=== PATIENT | male | born 1970 ===

== ENCOUNTER 2017-07-28 10:35 | Emergency (ER) | payer SELFPAY ==
[2017-07-28 11:13] VITALS: RESP 18
--- NOTE | 2017-07-28 13:43 | ED PDOC ---
HPI: Abdomen Time Seen by Provider: 07/28/17 13:17 Chief Complaint (Nursing): Abdominal Pain Chief Complaint (Provider): "my stomach hurts" History Per: Patient Onset/Duration Of Symptoms: Days Outside of [place] travel?: No Current Symptoms Are (Timing): Intermittent Episodes Severity: Mild Pain Scale Rating Of: 3 Location Of Pain/Discomfort: LUQ Quality Of Discomfort: Aching, Burning Associated Symptoms: Loss Of Appetite. denies: Nausea, Vomiting, Diarrhea, Constipation, Urinary Symptoms Exacerbating Factors: None Alleviating Factors: None Last Bowel Movement: Today Additional Complaint(s): 47 y/o male, no significant medical hx as per pt, presents for evaluation of LUQ pain. Pt reports pain started about 2-3 weeks ago without any known triggering event. Pain is located in the LUQ, is burning/achy in character, intermittent, 3-4/10 during episodes, nonradiating, w/o alleviating/ exacerbating factors. It is associated with a 10-15 pound weight loss due to loss of appetite and weakness. No other complaints. Denies fever/chills, headaches, changes in vision, CP/SOB/palpitations, V/D/C, urinary symptoms, numbness/tingling. Past Medical History Reviewed: Historical Data, Nursing Documentation, Vital Signs Vital Signs: Last Vital Signs Temp 98.5 F 07/28/17 11:09 Pulse 63 07/28/17 11:09 Resp 18 07/28/17 11:09 BP 126/77 07/28/17 11:09 Pulse Ox 100 07/28/17 13:44 - Medical History PMH: No Chronic Diseases - Family History Family History: States: Unknown Family Hx - Allergies Allergies/Adverse Reactions: Allergies Allergy/AdvReac Type Severity Reaction Status Date / Time No Known Allergies Allergy Verified 07/28/17 11:09 Review of Systems ROS Statement: Except As Marked, All Systems Reviewed And Found Negative Physical Exam - Reviewed Nursing Documentation Reviewed: Yes Vital Signs Reviewed: Yes - Physical Exam Appears: Positive for: Non-toxic, No Acute Distress Head Exam: Positive for: ATRAUMATIC Skin: Positive for: Warm, Dry Eye Exam: Positive for: EOMI, PERRL. Negative for: Conjunctival injection, Scleral icterus ENT: Positive for: Normal ENT Inspection Neck: Positive for: Painless ROM, Supple Cardiovascular/Chest: Positive for: Regular Rate, Rhythm. Negative for: Chest Non Tender (reproducible tenderness overlying 10th rib) Respiratory: Positive for: Normal Breath Sounds. Negative for: Accessory Muscle Use, Crackles, Rales, Rhonchi Pulses-Radial (L): 2+ Pulses-Radial (R): 2+ Gastrointestinal/Abdominal: Positive for: Bowel Sounds (normal bowel sounds ), Soft, Tenderness (LUQ tenderness ). 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 Results reviewed. Disposition - Clinical Impression Clinical Impression: Abdominal discomfort, Abdominal discomfort in left upper quadrant - Patient ED Disposition Is Patient to be Admitted: No - Disposition Disposition: Routine/Home Disposition Time: 17:01 Condition: GOOD Additional Instructions: take ibuprofen 400mg twice a day as needed follow up [facility] if symptoms worsen, come back for further evaluation. Instructions: Costochondritis (ED), Abdominal Pain (ED) Forms: [employer] (L[place]uanian)
[2017-07-28 15:14] LABS: HEMOGLOBIN 15.2 g/dL (12.0-18.0); MEAN CELL VOLUME 88.8 fl (80.0-94.0); MEAN CORPUSCULAR HEMOGLOBIN 29.4 pg (27.0-31.0); MEAN CORPUSCULAR HGB CONC 33.2 g/dL (33.0-37.0); MEAN PLATELET VOLUME 10.9 fl (7.2-11.7); RBC 5.16 Mil/uL (4.40-5.90); RED CELL DISTRIBUTION WIDTH 12.7 % (11.5-14.5); WHITE BLOOD COUNT 5.3 K/uL (4.8-10.8)
[2017-07-28 15:47] LABS: ALB/GLOB RATIO 1.5 (1.0-2.1); ALBUMIN 4.3 g/dL (3.5-5.0); ALT/SGPT 31 U/L (21-72); AST/SGOT 26 U/L (17-59); BLOOD UREA NITROGEN 13 mg/dl (9-20); CALCIUM 9.5 mg/dL (8.4-10.2); GFR AFRICAN-AMERICAN > 60; GFR NON-AFRICAN AMERICAN > 60
--- NOTE | 2017-07-28 16:56 | CT ---
PROCEDURE: CT Abdomen without contrast HISTORY: abdominal pain/weight loss COMPARISON: None. TECHNIQUE: Helical CT of the abdomen and pelvis was performed without oral or intravenous contrast as per referring physician request. Contrast dose: None Radiation dose: Total exam DLP = 131.02 mGy-cm. This CT exam was performed using one or more of the following dose reduction techniques: Automated exposure control, adjustment of the mA and/or kV according to patient size, and/or use of iterative reconstruction technique. FINDINGS: LOWER THORAX: Unremarkable. LIVER: Unremarkable. No gross lesion or ductal dilatation. GALLBLADDER AND BILE DUCTS: Unremarkable. PANCREAS: Unremarkable. No gross lesion or ductal dilatation. SPLEEN: Unremarkable. ADRENALS: Unremarkable. No mass. KIDNEYS AND URETERS: No obstructive uropathy, radiodense urolithiasis or perinephric reaction is identified bilaterally. VASCULATURE: Unremarkable. No aortic aneurysm. BOWEL: Unremarkable. No obstruction. Limited evaluation due lack of oral contrast agents and lack of intraperitoneal fat. APPENDIX: Normal appendix. PERITONEUM: Unremarkable. No free fluid. No free air. LYMPH NODES: No gross lymphadenopathy however there is a limited amount of intraperitoneal fat and no contrast agent utilized for this exam limiting the potential identification of small or moderately enlarged lymph nodes. BONES: No acute fracture. OTHER FINDINGS: None. IMPRESSION: Images through the abdomen reveals no radiodense urolithiasis, obstructive uropathy or perinephric reaction involving either kidney. Further evaluation of the remaining abdominal viscera is limited due lack of oral and intravenous contrast agents. If further clinical suspicion of intra-abdominal pathology is questioned then follow-up abdomen and pelvis CT is advised with contrast.
[2017-07-28 17:18] VITALS: BP 111/78; PULSE 80; TEMP 98; O2SAT 99
== END 2017-07-28 17:18 | disposition home or self-care (01) ==
LOC: H.ER 10:35
DX: M94.0 Chondrocostal junction syndrome [Tietze] (principal)
CPT/HCPCS: 74150; 80053; 85027; 96372; 99282; J1885